=== PATIENT | male | born 1960 | race Caucasian/White ===

== ENCOUNTER 2019-05-28 14:04 | Day surgery (SDC) | payer MEDICARE ==
[~2019-05-28] VITALS: Ht 172.7 cm; Wt 72.7 kg
[2019-05-28] MEDS ORDERED: LISINOPRIL20 MG PO (14:14)
[2019-05-28] MEDS ORDERED: HYDROCHLOROTH12.5 M1 PO (14:14)
[2019-05-28 14:53] LABS: BASOPHILS 0.2 % (0-2); EOSINOPHILS 0.2 % (0-7); HEMATOCRIT 43.8 % (42.0-54.0); IMMATURE GRANULOCYTES 0.2 % (0-5); LYMPHOCYTES 8.2 % (15-50); MCH 33.9 pg (26.0-34.0); MCHC 36.5 g/dL (31.0-37.0); MCV 92.8 fL (80.0-100.0); MEAN PLATELET VOLUME 11.1 fL (7.4-10.4); MONOCYTES 4.4 % (2-11); NEUTROPHILS 86.8 % (40-80); PLATELET COUNT 249 10x3/uL (130-400); RBC 4.72 10x6/uL (4.20-6.10); RDW 12.9 % (11.5-14.5); WBC 12.8 10x3/uL (4.8-10.8)
[2019-05-28 14:55] LABS: APTT 31.6 SECONDS (22.8-39.4); INR 1.07 (0.85-1.17); PROTIME 13.4 SECONDS (11.6-15.0)
[2019-05-28 15:00] LABS: ALBUMIN 3.5 g/dL (3.4-5.0); ALKALINE PHOSPHATASE 74 U/L (46-116); ALT (SGPT) 48 U/L (10-68); BILIRUBIN - TOTAL 0.45 mg/dL (0.2-1.3); CALC OSMOLALITY 280 mosm/kg (275-300); CALCIUM 8.7 mg/dL (8.5-10.1); CARBON DIOXIDE 25.7 mmol/L (21.0-32.0); CHLORIDE - SERUM 104 mmol/L (98-107); CREATININE - SERUM 0.8 mg/dL (0.6-1.3); GLUCOSE 163 mg/dL (74-106); POTASSIUM - SERUM 3.4 mmol/L (3.5-5.1); PROTEIN - SERUM 7.1 g/dL (6.4-8.2); SODIUM 139 mmol/L (136-145); UREA NITROGEN 10 mg/dL (7-18); eGFR NON AFRICAN AMERICAN > 90 mL/min (90-120)
--- NOTE | 2019-05-28 15:26 | NUR ---
DR. MENDEZ NOTIFIED AND REVIEWED PT'S BEHAVIOR AND ASSESSMENT RESULTS. PT IS A LOW RISK PER DR. MENDEZ. DR. MENDEZ STATED TO GIVE RESOURCES TO PT AT TIME OF DISCHARGE. NO FURTHER ORDERS AT THIS TIME. RESOURCES REVIEWED WITH PT HE VERBALIZIED UNDERSTANDING.
--- NOTE | 2019-05-28 18:00 | NUR ---
REC'D TO ROOM 2236 AWAKE AND ALERT. RESP EVEN AND UNLABORED WITH NO DISTRESS NOTED OR VOICED. CAN EXPRESS NEEDS AND WANTS. DENIES ANY PAIN OR DISCOMFORT AT THIS TIME. VS PER PROTOCOL. C/L IN REACH AT BEDSIDE.
[2019-05-28 18:01] VITALS: BP 125/78
[2019-05-28] MEDS ORDERED: NORVASC10 MG PO (18:39)
[2019-05-28 20:00] VITALS: BP 114/81
--- NOTE | 2019-05-28 20:57 | NUR ---
COMPLAINS OF NAUSEA, ZOFRAN GIVEN PER ORDERS. WILL NOTE ANY CHANGE.
[2019-05-29] VITALS (7 sets, daily range): BP systolic 112–155; BP diastolic 67–97; Ht 172.7 cm; Wt 72.7 kg
[2019-05-29] MEDS ORDERED: LISINOPRIL10 MG PO (06:23)
[2019-05-29] MEDS ORDERED: HCTZ25 MG PO (06:23)
--- NOTE | 2019-05-29 08:05 | OP ---
PATIENT NAME: DAVE LEIJA MEDICAL RECORD: [id number] :60 LOCATION:[id number] ADMISSION DATE: SURGEON: SANCHO MILLER DO DATE OF OPERATION: 05/28/2019 PROCEDURE PERFORMED: Closed reduction of right periprosthetic hip dislocation. PREOPERATIVE DIAGNOSIS: Right hip periprosthetic dislocation. POSTOPERATIVE DIAGNOSIS: Right hip periprosthetic dislocation. INDICATIONS: Mr. 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 He was planning on getting it revised soon, he says, but not ready for now. He said he was sleeping and woke up with it dislocated. The patient was informed that he would need this reduced. He will be an abductor pillow and an abductor brace pretty much for life and he said he had an abductor brace in the past, but he lost it and he was doing well with that, but then once he had lost it, his hip started coming out. He was informed of the risks including infection, bleeding, damage to nerves and vessels, need for further surgery and if I could not clear it close, we would do an open reduction with revision of constrained poly. He was okay with those risks and signed the consent. SURGEON: Sancho Miller DO DESCRIPTION OF PROCEDURE: The patient was taken to the operative suite, laid in the supine position, given general anesthetic and intubated. The patient was completely paralyzed. A timeout was performed and everyone was in agreeance of the correct side, site, patient and procedure. We then did a reduction maneuver of the hip and the hip popped back in and x-rays were taken, AP and lateral to confirm that it was indeed reduced. The patient was then placed in abduction pillow and awakened and taken to the recovery in stable condition. BLOOD LOSS: None. TRANSINT:[id number] Voice Confirmation ID: [id number] DOCUMENT ID: [id number] SANCHO MILLER DO at 0805 CC: [id number] DICTATION DATE: 05/28/191729 CONCRETE FORM SETTER AND FINISHER: 05/29/19 0247 [place] [id number] [place] [id number]
--- NOTE | 2019-05-29 15:30 | NUR ---
THIS NURSE WAS GOING TO ANSWER PT CALL LIGHT AND PT HAD HIS ABDUCTION PILLOW OFF AND STATED " I JUST CAME BACK OUT OF THE BATHROOM. " THIS NURSE INFORMED PT THAT HE IS NOT TO BE UP WALKING W/O HIS BRACE ON AND THAT HE IS ON BEDREST. ALSO THIS NURSE INFORMED PT THAT WE HAVE REC'D A NEW ORDER FOR ROBITUSSIN COUGH MEDICINE. C/L IN REACH AT BEDSIDE.
--- NOTE | 2019-05-29 16:20 | NUR ---
PT HAS BEEN UP WALKING AROUND ROOM WITHOUT THE BRACE ON AND THIS NURSE INFORMED PT THAT HE IS ON BEDREST UNITL BRACE ARRIVE AND THAT HE NEEDS TO BE IN BED BUT PT REFUSED STATED I CANT LAY IN THIS BED ANY LONG. C/L IN REACH AT BEDSIDE.
[2019-05-29] MEDS ORDERED: HYDROCODON-ACE1 EAC7 PO (16:49)
--- NOTE | 2019-05-29 16:50 | NUR ---
WILLIAM ARRIVED AND PLACED ON PT AND INSTRUCTION GIVEN ON HOW TO USE IT. PT THEN STATED " I ACT CRAZY SO THAT I CAN GET WHAT I WANT. YOU WILL BE SUPRISED AT THIS THE STUFF THAT I HAVE GOTTEN AWAY WITH ACTING THAT WAY."
--- NOTE | 2019-05-29 17:13 | NUR ---
DC HOME AT THIS TIME BY Ashlee SINGH. VOICE UNDERSTAND OF DC INSTRUCTION. BRACE IN USE. STABLE CONDITION UPON DEPARTURE.IV DC WITH TIP INTACT.
== END 2019-05-29 17:15 | disposition home or self-care (01) ==
LOC: D.ER 14:04 → D.OPS 14:04 → EDSTATUS 15:36 → D.MS 17:47 → D.OPS 05-29 17:15
PROVIDERS: Family Medicine; ATTEND Orthopaedic Surgery
DX: T84.020A Dislocation of internal right hip prosthesis, initial encounter (principal); Y83.9 Surgical procedure, unspecified as the cause of abnormal reaction of the patient, or of later complication, without mention of misadventure at the time of the procedure